=== PATIENT | male | born 1980 | race Caucasian/White ===

== ENCOUNTER → 2018-12-13 | Outpatient (CLI) | payer OTHER | LOC: COL.RAD 07:30 | DX: M47.816 Spondylosis without myelopathy or radiculopathy, lumbar region (principal); M48.061 Spinal stenosis, lumbar region without neurogenic claudication ==

== ENCOUNTER → 2019-04-23 | Outpatient (CLI) | payer OTHER | LOC: MHCPAIN 15:14 | DX: M47.817 Spondylosis without myelopathy or radiculopathy, lumbosacral region (principal); M53.3 Sacrococcygeal disorders, not elsewhere classified | CPT/HCPCS: G0463 ==

== ENCOUNTER → 2019-05-09 | Outpatient (CLI) | payer OTHER | LOC: MHCPAIN 15:03 | DX: M51.37 Other intervertebral disc degeneration, lumbosacral region (principal); M54.5 Low back pain ==

== ENCOUNTER → 2019-05-27 | Outpatient (CLI) | payer OTHER | LOC: MHCPAIN 11:08 | DX: M47.817 Spondylosis without myelopathy or radiculopathy, lumbosacral region (principal); M53.3 Sacrococcygeal disorders, not elsewhere classified | CPT/HCPCS: G0463 ==

== ENCOUNTER → 2019-06-06 | Outpatient (CLI) | payer OTHER | LOC: MHCPAIN 15:20 | DX: M51.37 Other intervertebral disc degeneration, lumbosacral region (principal); M54.5 Low back pain ==

== ENCOUNTER → 2019-06-18 | Outpatient (CLI) | payer OTHER | LOC: MHCPAIN 08:09 | DX: M47.817 Spondylosis without myelopathy or radiculopathy, lumbosacral region (principal); M53.3 Sacrococcygeal disorders, not elsewhere classified | CPT/HCPCS: G0463 ==

== ENCOUNTER → 2019-07-29 | Outpatient (CLI) | payer OTHER | LOC: MHCPAIN 11:50 | DX: M53.3 Sacrococcygeal disorders, not elsewhere classified (principal); M47.817 Spondylosis without myelopathy or radiculopathy, lumbosacral region; G89.29 Other chronic pain | CPT/HCPCS: G0463; J1100; J2250; J3010 ==

== ENCOUNTER → 2019-08-01 | Outpatient (CLI) | payer OTHER | LOC: MHCPAIN 12:17 | DX: M54.5 Low back pain (principal) | CPT/HCPCS: J1100; J2250; J3010 ==

== ENCOUNTER → 2019-10-30 | Outpatient (CLI) | payer OTHER | LOC: MHCPAIN 15:12 | DX: M47.817 Spondylosis without myelopathy or radiculopathy, lumbosacral region (principal); M53.3 Sacrococcygeal disorders, not elsewhere classified; M54.5 Low back pain; G89.29 Other chronic pain | CPT/HCPCS: G0463 ==

== ENCOUNTER → 2020-11-18 | Outpatient (CLI) | payer OTHER | LOC: COL.RAD 10:10 | DX: Z02.71 Encounter for disability determination (principal); M25.572 Pain in left ankle and joints of left foot ==